=== PATIENT | male | born 1965 | race Caucasian/White ===

== ENCOUNTER 2020-05-25 17:54 | Emergency (ER) | payer SELFPAY ==
[2020-05-25] MEDS ORDERED: Lidocaine 1% w/Epinephrine 1:100K 20 ML VIAL ONE (18:16)
[2020-05-25] MEDS ORDERED: Neosporin Ophth Soln 10 ml Bottle ONE (18:32)
[2020-05-25] MEDS ORDERED: Triple Antibiotic Oint 1 GM Packet ONE (18:33)
== END 2020-05-25 18:40 | disposition home or self-care (01) ==
LOC: MADERS 17:54
DX: S50.852A Superficial foreign body of left forearm, initial encounter (principal); F17.210 Nicotine dependence, cigarettes, uncomplicated; W45.8XXA Other foreign body or object entering through skin, initial encounter
CPT/HCPCS: 99283